=== PATIENT | female | born 1930 | race Caucasian/White ===

== ENCOUNTER 2018-07-19 14:40 | Emergency (ER) | payer MEDICARE ==
[2018-07-19 14:56] VITALS: RESP 18; TEMP 98.1
[2018-07-19] MEDS ORDERED: hydrALAZINE HCL 25 MG TAB PO STA (15:15)
[2018-07-19] MEDS ORDERED: hydrALAZINE HCL 20 MG/ML 1 ML VIAL IVP STA (15:17)
--- NOTE | 2018-07-19 15:21 | ED ---
General Adult HPI - General Chief complaint: Recheck/Abnormal Lab/Rx Stated complaint: hypertension Time Seen by Provider: 07/19/18 14:46 Source: patient, family, EMS, RN notes reviewed Mode of arrival: EMS Limitations: no limitations - History of Present Illness Initial comments: Patient is a pleasant 87-year-old female presenting to the emergency department with concerns for hypertension. Patient states blood pressure this morning was 200 systolic. Patient does not have further information. Patient states otherwise she feels fine. Patient does have some lightheadedness however this is chronic and unchanged. Family is present and does not have further information. Patient denies any chest pain or dyspnea. No weakness or confusion. - Related Data Home Medications Medication Instructions Recorded Confirmed Acetaminophen-Codeine 300-30mg 1 tab PO Q6H PRN 07/19/18 07/19/18 [Tylenol w/codeine #3] Albuterol Sulfate [Proair Hfa] 2 puff INHALATION RT-Q6H PRN 07/19/18 07/19/18 Cyanocobalamin (Vitamin B-12) 1,000 mcg PO DAILY 07/19/18 07/19/18 [Vitamin B-12] DULoxetine HCL [Cymbalta] 30 mg PO DAILY 07/19/18 07/19/18 Docusate [Colace] 100 mg PO HS 07/19/18 07/19/18 Dorzolamide HCl/Pf [Dorzolamide 2% 1 drop BOTH EYES BID 07/19/18 07/19/18 Eye Drop] Ergocalciferol [Vitamin D2] 50,000 unit PO TH 07/19/18 07/19/18 Folic Acid 0.4 mg PO DAILY 07/19/18 07/19/18 Gabapentin [Neurontin] 300 mg PO BID 07/19/18 07/19/18 Latanoprost/Pf [Latanoprost 0.005% 1 drop BOTH EYES HS 07/19/18 07/19/18 Eye Drop] Levothyroxine Sodium [Synthroid] 25 mcg PO DAILY 07/19/18 07/19/18 Neomycin/Bacitracin/Polymyxinb 1 applic TOPICAL TID PRN 07/19/18 07/19/18 [Neosporin Ointment] Sensi-Care 15%-49% Cream 1 applic TOPICAL DAILY PRN 07/19/18 07/19/18 Vit C/E/Zn/Coppr/Lutein/Zeaxan 1 cap PO BID 07/19/18 07/19/18 [Preservision Areds 2 Softgel] Zolpidem [Ambien] 5 mg PO HS 07/19/18 07/19/18 amLODIPine [Norvasc] 10 mg PO HS 07/19/18 07/19/18 hydrALAZINE HCL [Apresoline] 50 mg PO TID 07/19/18 07/19/18 Allergies Allergy/AdvReac Type Severity Reaction Status Date / Time morphine Allergy Unknown Verified 07/19/18 15:07 sertraline Allergy Unknown Verified 07/19/18 15:07 Review of Systems ROS Statement: Those systems with pertinent positive or pertinent negative responses have been documented in the HPI. ROS Other: All systems not noted in ROS Statement are negative. Constitutional: Denies: fever Eyes: Denies: eye pain ENT: Denies: ear pain Respiratory: Denies: cough, dyspnea Cardiovascular: Denies: chest pain Endocrine: Denies: fatigue Gastrointestinal: Denies: abdominal pain Genitourinary: Denies: dysuria Musculoskeletal: Denies: back pain Skin: Denies: rash Neurological: Denies: headache Past Medical History Past Medical History: No Reported History History of Any Multi-Drug Resistant Organisms: None Reported Past Surgical History: No Surgical Hx Reported Past Psychological History: Depression Smoking Status: Former smoker Past Alcohol Use History: None Reported Past Drug Use History: None Reported General Exam Limitations: no limitations General appearance: alert, in no apparent distress Head exam: Present: atraumatic Eye exam: Present: normal appearance, PERRL, EOMI. Absent: nystagmus ENT exam: Present: normal oropharynx Neck exam: Present: normal inspection Respiratory exam: Present: normal lung sounds bilaterally Cardiovascular Exam: Present: regular rate, normal rhythm GI/Abdominal exam: Present: soft. Absent: tenderness Extremities exam: Present: normal inspection Neurological exam: Present: alert, oriented X3, CN II-XII intact. Absent: motor sensory deficit Expanded Neurological exam: Present: protecting the airway Patient oriented to: Present: person, place, time Speech: Present: fluid speech Cranial nerves: EOM's Intact: Normal, Facial Sensation: Normal Motor strength exam: RUE: 5, LUE: 5, RLE: 5, LLE: 5 Eye Response: (4) open spontaneously Motor Response: (6) obeys commands Verbal Response: (5) oriented Psychiatric exam: Present: normal affect, normal mood Skin exam: Present: normal color Course Vital Signs 07/19/18 07/19/18 14:53 15:30 Temperature 98.1 F Pulse Rate 60 58 L Respiratory 18 18 Rate Blood Pressure 182/65 175/63 O2 Sat by Pulse 92 L 94 L Oximetry EKG Findings - EKG Comments: EKG Findings:: Normal sinus rhythm 60. IA 174. QRS 82. QT 440. QTc 440. Left axis. Inferior Q waves. Nonspecific T waves. Medical Decision Making - Medical Decision Making Patient reevaluated and resting comfortably in bed. Patient symptom-free at this time. Patient and family updated on results. Case was discussed in detail with Dr. Nation who does agree with plan and states patient can follow-up with Dr. Vargas. - Lab Data Result diagrams: 07/19/18 14:46 07/19/18 14:46 Lab Results 07/19/18 07/19/18 Range/Units 14:46 14:46 WBC 6.2 (3.8-10.6) k/uL RBC 5.04 (3.80-5.40) m/uL Hgb 14.6 (11.4-16.0) gm/dL Hct 45.8 (34.0-46.0) % MCV 90.8 (80.0-100.0) fL MCH 29.0 (25.0-35.0) pg MCHC 31.9 (31.0-37.0) g/dL RDW 13.8 (11.5-15.5) % Plt Count 236 (150-450) k/uL Neutrophils % 57 % Lymphocytes % 31 % Monocytes % 7 % Eosinophils % 3 % Basophils % 1 % Neutrophils # 3.5 (1.3-7.7) k/uL Lymphocytes # 1.9 (1.0-4.8) k/uL Monocytes # 0.4 (0-1.0) k/uL Eosinophils # 0.2 (0-0.7) k/uL Basophils # 0.1 (0-0.2) k/uL Sodium 140 (137-145) mmol/L Potassium 4.4 (3.5-5.1) mmol/L Chloride 104 (98-107) mmol/L Carbon Dioxide 28 (22-30) mmol/L Anion Gap 8 mmol/L BUN 21 H (7-17) mg/dL Creatinine 0.80 (0.52-1.04) mg/dL Est GFR (CKD-EPI)AfAm 76 (>60 ml/min/1.73 sqM) Est GFR (CKD-EPI)NonAf 66 (>60 ml/min/1.73 sqM) Glucose 85 (74-99) mg/dL Calcium 9.0 (8.4-10.2) mg/dL Total Bilirubin 0.4 (0.2-1.3) mg/dL AST 32 (14-36) U/L ALT 29 (9-52) U/L Alkaline Phosphatase 131 H (38-126) U/L Total Protein 7.1 (6.3-8.2) g/dL Albumin 3.8 (3.5-5.0) g/dL Disposition Clinical Impression: Hypertension Disposition: HOME SELF-CARE Condition: Stable Instructions: Chronic Hypertension (ED) Additional Instructions: Please follow-up with Dr. Vargas this week. Return for uncontrolled blood pressure, weakness, pain, worsening or changing symptoms or other concerns. May take 1 additional dose of hydralazine daily if systolic blood pressure greater than 185 or diastolic blood pressure greater than 90 despite regular blood pressure medication. Is patient prescribed a controlled substance at d/c from ED?: No Referrals: Teto Vargas MD [Primary Care Provider] - 1-2 days Time of Disposition: 16:36
[2018-07-19 15:40] LABS: Basophils # (A) 0.1 k/uL (0-0.2); Basophils % (A) 1 %; Eosinophils # (A) 0.2 k/uL (0-0.7); Eosinophils % (A) 3 %; HCT 45.8 % (34.0-46.0); HGB 14.6 gm/dL (11.4-16.0); Lymphocytes # (A) 1.9 k/uL (1.0-4.8); Lymphocytes % (A) 31 %; MCHC 31.9 g/dL (31.0-37.0); MCV 90.8 fL (80.0-100.0); Mean Platelet Volume 7.9; Monocytes # (A) 0.4 k/uL (0-1.0); Monocytes % (A) 7 %; Neutrophils # (A) 3.5 k/uL (1.3-7.7); Neutrophils % (A) 57 %; Platelet Count 236 k/uL (150-450); RBC 5.04 m/uL (3.80-5.40); RDW 13.8 % (11.5-15.5); WBC 6.2 k/uL (3.8-10.6)
[2018-07-19 15:52] LABS: Albumin 3.8 g/dL (3.5-5.0); Potassium 4.4 mmol/L (3.5-5.1); Total Bilirubin 0.4 mg/dL (0.2-1.3); Total Protein 7.1 g/dL (6.3-8.2)
[2018-07-19 16:38] VITALS: BP 169/61; PULSE 60
== END 2018-07-19 16:56 | disposition home or self-care (01) ==
LOC: EC 14:40
DX: I10 Essential (primary) hypertension (principal); R42 Dizziness and giddiness; F32.9 Major depressive disorder, single episode, unspecified; Z87.891 Personal history of nicotine dependence; Z88.5 Allergy status to narcotic agent; Z88.8 Allergy status to other drugs, medicaments and biological substances; Z79.899 Other long term (current) drug therapy
CPT/HCPCS: 36415; 93005; 80053; 85025; 99284; 96374; J0360

== ENCOUNTER 2018-12-15 13:43 | Emergency (ER) | payer MEDICARE ==
[2018-12-15] MEDS ORDERED: SODIUM CHLORIDE 0.9% 1,000 ML IV STA (14:03)
--- NOTE | 2018-12-15 14:12 | ED ---
Weakness HPI - General Chief complaint: Syncope Stated complaint: FALL, HEAD/NECK INJURY Time Seen by Provider: 12/15/18 14:02 Source: patient, RN notes reviewed, old records reviewed Mode of arrival: EMS Limitations: no limitations - History of Present Illness Initial comments: This is an 88-year-old female the ER for evaluation of fall. Patient's a poor strain history obtained from EMS. Patient comes from home where she had The fall. No blood thinners.. Patient has no complaints. MD Complaint: generalized weakness, lack of energy, difficulty walking -: unknown Location: generalized Severity: moderate Severity scale (1-10): 5 Improves with: none Worsens with: none Associated Symptoms: denies other symptoms - Related Data Home Medications Medication Instructions Recorded Confirmed Acetaminophen-Codeine 300-30mg 1 tab PO Q6H PRN 07/19/18 12/15/18 [Tylenol w/codeine #3] Albuterol Sulfate [Proair Hfa] 2 puff INHALATION RT-Q6H PRN 07/19/18 12/15/18 Cyanocobalamin (Vitamin B-12) 1,000 mcg PO DAILY 07/19/18 12/15/18 [Vitamin B-12] DULoxetine HCL [Cymbalta] 30 mg PO DAILY 07/19/18 12/15/18 Docusate [Colace] 100 mg PO HS 07/19/18 12/15/18 Dorzolamide HCl/Pf [Dorzolamide 2% 1 drop BOTH EYES BID 07/19/18 12/15/18 Eye Drop] Ergocalciferol [Vitamin D2] 50,000 unit PO TH 07/19/18 12/15/18 Folic Acid 0.4 mg PO DAILY 07/19/18 12/15/18 Latanoprost/Pf [Latanoprost 0.005% 1 drop BOTH EYES HS 07/19/18 12/15/18 Eye Drop] Levothyroxine Sodium [Synthroid] 25 mcg PO DAILY 07/19/18 12/15/18 Vit C/E/Zn/Coppr/Lutein/Zeaxan 1 cap PO BID 07/19/18 12/15/18 [Preservision Areds 2 Softgel] Zolpidem [Ambien] 5 mg PO HS 07/19/18 12/15/18 amLODIPine [Norvasc] 10 mg PO HS 07/19/18 12/15/18 hydrALAZINE HCL [Apresoline] 50 mg PO BID 07/19/18 12/15/18 Acetaminophen Tab [Tylenol Tab] 325 mg PO Q4H PRN 12/15/18 12/15/18 Gabapentin [Neurontin] 100 mg PO BID@0800,1200 12/15/18 12/15/18 Gabapentin [Neurontin] 300 mg PO HS 12/15/18 12/15/18 Lisinopril [Zestril] 10 mg PO DAILY@1200 12/15/18 12/15/18 Magnesium Hydroxide [Milk of 22,400 mg PO DAILY PRN 12/15/18 12/15/18 Magnesia] Meclizine [Antivert] 12.5 mg PO BID PRN 12/15/18 12/15/18 hydrALAZINE HCL [Apresoline] 100 mg PO BID PRN 12/15/18 12/15/18 Allergies Allergy/AdvReac Type Severity Reaction Status Date / Time morphine Allergy Unknown Verified 12/15/18 14:16 sertraline Allergy Unknown Verified 12/15/18 14:16 Review of Systems ROS Statement: Those systems with pertinent positive or pertinent negative responses have been documented in the HPI. ROS Other: All systems not noted in ROS Statement are negative. Past Medical History Past Medical History: No Reported History Additional Past Medical History / Comment(s): neuropathy History of Any Multi-Drug Resistant Organisms: None Reported Past Surgical History: Orthopedic Surgery, Tonsillectomy Additional Past Surgical History / Comment(s): right hip Past Psychological History: Depression Smoking Status: Former smoker Past Alcohol Use History: None Reported Past Drug Use History: None Reported General Exam Limitations: no limitations General appearance: alert, in no apparent distress Head exam: Present: atraumatic, normocephalic, normal inspection Eye exam: Present: normal appearance, PERRL, EOMI. Absent: scleral icterus, conjunctival injection, periorbital swelling ENT exam: Present: normal exam, mucous membranes moist Neck exam: Present: normal inspection. Absent: tenderness, meningismus, lymphadenopathy Respiratory exam: Present: normal lung sounds bilaterally. Absent: respiratory distress, wheezes, rales, rhonchi, stridor Cardiovascular Exam: Present: regular rate, normal rhythm, normal heart sounds. Absent: systolic murmur, diastolic murmur, rubs, gallop, clicks GI/Abdominal exam: Present: soft, normal bowel sounds. Absent: distended, tenderness, guarding, rebound, rigid Extremities exam: Present: normal inspection, full ROM, normal capillary refill. Absent: tenderness, pedal edema, joint swelling, calf tenderness Back exam: Present: normal inspection Neurological exam: Present: alert, oriented X3, CN II-XII intact Psychiatric exam: Present: normal affect, normal mood Skin exam: Present: warm, dry, intact, normal color. Absent: rash Course Vital Signs 12/15/18 12/15/18 12/15/18 13:52 14:00 14:30 Temperature 97.9 F Pulse Rate 60 56 L 54 L Respiratory 17 16 15 Rate Blood Pressure 161/52 161/52 176/60 O2 Sat by Pulse 97 97 95 Oximetry 12/15/18 12/15/18 12/15/18 14:40 14:50 15:00 Temperature Pulse Rate 58 L 53 L Respiratory 13 18 Rate Blood Pressure 173/70 173/70 181/77 O2 Sat by Pulse 93 L 96 95 Oximetry 12/15/18 12/15/18 12/15/18 15:20 15:30 15:40 Temperature Pulse Rate 52 L 53 L 56 L Respiratory 19 19 16 Rate Blood Pressure 183/61 O2 Sat by Pulse 97 98 95 Oximetry 12/15/18 12/15/18 12/15/18 15:50 16:00 16:10 Temperature Pulse Rate 56 L 59 L Respiratory 7 L 11 L Rate Blood Pressure 183/61 183/61 183/61 O2 Sat by Pulse 94 L 91 L Oximetry 12/15/18 12/15/18 12/15/18 16:20 16:30 16:40 Temperature Pulse Rate 56 L 56 L 56 L Respiratory 15 19 11 L Rate Blood Pressure 183/61 183/61 188/67 O2 Sat by Pulse 96 97 96 Oximetry 12/15/18 12/15/18 12/15/18 16:50 17:00 17:10 Temperature Pulse Rate 58 L Respiratory 19 Rate Blood Pressure 188/67 188/67 159/72 O2 Sat by Pulse 90 L Oximetry 12/15/18 12/15/18 12/15/18 17:20 17:30 17:40 Temperature Pulse Rate 60 61 62 Respiratory 10 L 13 11 L Rate Blood Pressure 159/72 159/72 145/116 O2 Sat by Pulse 94 L 88 L 89 L Oximetry 12/15/18 12/15/18 17:50 18:00 Temperature Pulse Rate 64 62 Respiratory 14 15 Rate Blood Pressure 145/116 116/61 O2 Sat by Pulse 92 L Oximetry - Reevaluation(s) Reevaluation #1: 12/15/18 17:40 Medical record reviewed Reevaluation #2: 12/15/18 17:40 A she remains in no acute distress Reevaluation #3: 12/15/18 18:25 patient without complaint EKG Findings - EKG Comments: EKG Findings:: EKG shows bradycardia rate of 57, TN 166, QRS 70, QTc 420 Medical Decision Making - Medical Decision Making 88 female to the ER for evaluation. Patient presents today for evaluation in regards to fall. No injury from fall. Patient is multiple testing done today which is negative. Patient can be discharged home feeling and remaining without complaint - Lab Data Result diagrams: 12/15/18 14:00 12/15/18 14:00 Lab Results 12/15/18 12/15/18 12/15/18 Range/Units 14:00 14:00 14:00 WBC 4.9 (3.8-10.6) k/uL RBC 4.53 (3.80-5.40) m/uL Hgb 13.7 (11.4-16.0) gm/dL Hct 42.1 (34.0-46.0) % MCV 93.0 (80.0-100.0) fL MCH 30.3 (25.0-35.0) pg MCHC 32.6 (31.0-37.0) g/dL RDW 13.6 (11.5-15.5) % Plt Count 210 (150-450) k/uL Neutrophils % 59 % Lymphocytes % 27 % Monocytes % 8 % Eosinophils % 3 % Basophils % 1 % Neutrophils # 2.9 (1.3-7.7) k/uL Lymphocytes # 1.3 (1.0-4.8) k/uL Monocytes # 0.4 (0-1.0) k/uL Eosinophils # 0.2 (0-0.7) k/uL Basophils # 0.0 (0-0.2) k/uL PT 10.0 (9.0-12.0) sec INR 0.9 (<1.2) APTT 24.1 (22.0-30.0) sec D-Dimer 2.55 H (<0.60) mg/L FEU Sodium 140 (137-145) mmol/L Potassium 4.7 (3.5-5.1) mmol/L Chloride 106 (98-107) mmol/L Carbon Dioxide 27 (22-30) mmol/L Anion Gap 7 mmol/L BUN 24 H (7-17) mg/dL Creatinine 0.71 (0.52-1.04) mg/dL Est GFR (CKD-EPI)AfAm 88 (>60 ml/min/1.73 sqM) Est GFR (CKD-EPI)NonAf 76 (>60 ml/min/1.73 sqM) Glucose 125 H (74-99) mg/dL Calcium 9.1 (8.4-10.2) mg/dL Phosphorus 3.9 (2.5-4.5) mg/dL Magnesium 2.1 (1.6-2.3) mg/dL Total Bilirubin 0.4 (0.2-1.3) mg/dL AST 20 (14-36) U/L ALT 20 (9-52) U/L Alkaline Phosphatase 116 (38-126) U/L Total Creatine Kinase (30-135) U/L CK-MB (CK-2) (0.0-2.4) ng/mL CK-MB (CK-2) Rel Index Troponin I (0.000-0.034) ng/mL NT-Pro-B Natriuret Pep pg/mL Total Protein 6.6 (6.3-8.2) g/dL Albumin 3.8 (3.5-5.0) g/dL Urine Color Urine Appearance (Clear) Urine pH (5.0-8.0) Ur Specific [place] (1.001-1.035) Urine Protein (Negative) Urine Glucose (UA) (Negative) Urine Ketones (Negative) Urine Blood (Negative) Urine Nitrite (Negative) Urine Bilirubin (Negative) Urine Urobilinogen (<2.0) mg/dL Ur Leukocyte Esterase (Negative) Urine RBC (0-5) /hpf Urine WBC (0-5) /hpf Ur Squamous Epith Cells (0-4) /hpf Amorphous Sediment (None) /hpf Urine Mucus (None) /hpf 12/15/18 12/15/18 12/15/18 Range/Units 14:00 14:00 17:50 WBC (3.8-10.6) k/uL RBC (3.80-5.40) m/uL Hgb (11.4-16.0) gm/dL Hct (34.0-46.0) % MCV (80.0-100.0) fL MCH (25.0-35.0) pg MCHC (31.0-37.0) g/dL RDW (11.5-15.5) % Plt Count (150-450) k/uL Neutrophils % % Lymphocytes % % Monocytes % % Eosinophils % % Basophils % % Neutrophils # (1.3-7.7) k/uL Lymphocytes # (1.0-4.8) k/uL Monocytes # (0-1.0) k/uL Eosinophils # (0-0.7) k/uL Basophils # (0-0.2) k/uL PT (9.0-12.0) sec INR (<1.2) APTT (22.0-30.0) sec D-Dimer (<0.60) mg/L FEU Sodium (137-145) mmol/L Potassium (3.5-5.1) mmol/L Chloride (98-107) mmol/L Carbon Dioxide (22-30) mmol/L Anion Gap mmol/L BUN (7-17) mg/dL Creatinine (0.52-1.04) mg/dL Est GFR (CKD-EPI)AfAm (>60 ml/min/1.73 sqM) Est GFR (CKD-EPI)NonAf (>60 ml/min/1.73 sqM) Glucose (74-99) mg/dL Calcium (8.4-10.2) mg/dL Phosphorus (2.5-4.5) mg/dL Magnesium (1.6-2.3) mg/dL Total Bilirubin (0.2-1.3) mg/dL AST (14-36) U/L ALT (9-52) U/L Alkaline Phosphatase (38-126) U/L Total Creatine Kinase 43 (30-135) U/L CK-MB (CK-2) 1.4 (0.0-2.4) ng/mL CK-MB (CK-2) Rel Index 3.3 Troponin I <0.012 (0.000-0.034) ng/mL NT-Pro-B Natriuret Pep 415 pg/mL Total Protein (6.3-8.2) g/dL Albumin (3.5-5.0) g/dL Urine Color Light Yellow Urine Appearance Clear (Clear) Urine pH 7.0 (5.0-8.0) Ur Specific [place] 1.030 (1.001-1.035) Urine Protein Negative (Negative) Urine Glucose (UA) Negative (Negative) Urine Ketones Negative (Negative) Urine Blood Negative (Negative) Urine Nitrite Negative (Negative) Urine Bilirubin Negative (Negative) Urine Urobilinogen <2.0 (<2.0) mg/dL Ur Leukocyte Esterase Small H (Negative) Urine RBC 1 (0-5) /hpf Urine WBC 5 (0-5) /hpf Ur Squamous Epith Cells 2 (0-4) /hpf Amorphous Sediment Rare H (None) /hpf Urine Mucus Rare H (None) /hpf - Radiology Data Radiology results: report reviewed (CT brain C-spine negative for acute disease CTA chest negative for acute disease chest x-ray and pelvis x-rays negative for acute disease), image reviewed Disposition Clinical Impression: Fall Disposition: HOME SELF-CARE Instructions (If sedation given, give patient instructions): Fall Prevention for Older Adults (ED) Is patient prescribed a controlled substance at d/c from ED?: No Referrals: Teto Vargas MD [Primary Care Provider] - 1-2 days
[2018-12-15 15:00] LABS: Basophils % (A) 1 %; Eosinophils # (A) 0.2 k/uL (0-0.7); Eosinophils % (A) 3 %; HCT 42.1 % (34.0-46.0); HGB 13.7 gm/dL (11.4-16.0); Lymphocytes # (A) 1.3 k/uL (1.0-4.8); Lymphocytes % (A) 27 %; MCH 30.3 pg (25.0-35.0); MCHC 32.6 g/dL (31.0-37.0); Mean Platelet Volume 8.4; Monocytes # (A) 0.4 k/uL (0-1.0); Monocytes % (A) 8 %; Neutrophils # (A) 2.9 k/uL (1.3-7.7); Neutrophils % (A) 59 %; Platelet Count 210 k/uL (150-450); RBC 4.53 m/uL (3.80-5.40); RDW 13.6 % (11.5-15.5); WBC 4.9 k/uL (3.8-10.6)
[2018-12-15 15:09] LABS: Albumin 3.8 g/dL (3.5-5.0); Calcium 9.1 mg/dL (8.4-10.2); Magnesium 2.1 mg/dL (1.6-2.3); Phosphorus 3.9 mg/dL (2.5-4.5); Potassium 4.7 mmol/L (3.5-5.1); Total Bilirubin 0.4 mg/dL (0.2-1.3); Total Protein 6.6 g/dL (6.3-8.2)
[2018-12-15 15:15] LABS: INR 0.9 (<1.2); Partial Thromboplastin Time 24.1 sec (22.0-30.0)
[2018-12-15 15:17] LABS: D-Dimer 2.55 mg/L FEU (<0.60)
[2018-12-15 15:25] LABS: Troponin I <0.012 ng/mL (0.000-0.034)
--- NOTE | 2018-12-15 15:41 | CT ---
EXAMINATION TYPE: CT brain jet mohr con DATE OF EXAM: 12/15/2018 COMPARISON: None HISTORY: 88-year-old female with pain after Fall today CT DLP: 1352.7 mGycm Automated exposure control for dose reduction was used. Technique: Examination of the head was done in axial plane without intravenous contrast. Coronal and sagittal reconstructions performed. CT of the cervical spine was obtained in axial plane without intravenous injection of contrast mater ial. Coronal and sagittal reformatted images were obtained from the axial views for evaluation of f ractures, spinal alignment and canal. FINDINGS: Head: There is no evidence of acute intracranial hemorrhage, acute ischemic changes, mass, mass-effect, or extra-axial fluid collection. There is no effacement of cerebral sulci or basal subarachnoid cister ns. There is no hydrocephalus. There is no midline shift. Samson-white matter distinction is preserv ed. There is moderate cerebral atrophy. Empty sella noted. Prominent calcified choroid plexus cysts are d emonstrated. Scleral banding on the left. Paranasal sinuses and mastoid air cells appear well-pneumatized. Cervical spine: No craniocervical junction abnormality, predental space widening, or prevertebral soft tissue swellin g. Degenerative changes of the C1 dens articulation. Trace grade 1 retrolisthesis at C4-C5 and trace grade 1 anterolisthesis at C7-T1 and T2-T3. Hypertrophic facet and uncovertebral joint degenerative change throughout. No acute fracture of the cervical spine. Variable mild to moderate neural foraminal stenoses througho ut Densities at this chronic calcifications abdominal aorta and great vessels bronchial wall thickening in the visualized upper lungs and some additional patchy densities superimposed on COPD. Chest will b e reported separately. Sagittal and coronal reformatted images confirm above findings. COMBINED IMPRESSION: 1. Moderate cerebral atrophy. No acute intracranial abnormality seen. 2. No acute fracture of the cervical spine. Moderate multilevel spondylotic change. Degenerative grad e 1 spondylolistheses at C4-C5, C7-T1, and T2-T3.
--- NOTE | 2018-12-15 16:21 | XR ---
EXAMINATION TYPE: XR chest 1V DATE OF EXAM: 12/15/2018 COMPARISON: 11/11/2012 HISTORY: 88-year-old female fall and pain TECHNIQUE: Single frontal view of the chest is obtained. FINDINGS: Densely calcified thoracic aorta redemonstrated. Heart borderline enlarged. Mild diffuse interstitial prominence of the chronic appearance. No ciro consolidation or pleural effusion seen. IMPRESSION: Borderline heart size. Densely calcified thoracic aorta. There could be underlying aortic ectasia. Ot herwise, chronic appearing changes without definite acute process.
--- NOTE | 2018-12-15 16:23 | XR ---
EXAMINATION TYPE: AP view pelvis and 2 views right hip. DATE OF EXAM: 12/15/2018 COMPARISON: NONE HISTORY: 88-year-old female fall and pain FINDINGS: Heterotopic ossification and/or chronically displaced fragments from the bilateral greater trochanter s are redemonstrated. Right-sided total hip arthroplasty and left hip hemiarthroplasty are demonstrat ed. Pubic symphysis appears intact. Femoral stem component of the right hip total arthroplasty appears well seated. No evidence of loosen ing. No periprosthetic fracture seen. IMPRESSION: 1. Right hip total arthroplasty. Chronically displaced, corticated greater trochanter fragments are d emonstrated. No periprosthetic fracture or loosening. 2. 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
[2018-12-15 16:43] LABS: Creatine Kinase 43 U/L (30-135)
[2018-12-15 16:53] LABS: Creatine Kinase MB 1.4 ng/mL (0.0-2.4)
--- NOTE | 2018-12-15 17:43 | CT ---
EXAMINATION TYPE: CT angio chest w con abdomen 3-D reconstruction renderings DATE OF EXAM: 12/15/2018 5:03 PM COMPARISON: None HISTORY: PEG, pt recently had a fall CT DLP: 218.8 mGycm Automated exposure control for dose reduction was used. CONTRAST: CTA scan of the thorax is performed with IV Contrast, patient injected with 100 mL of Isovu e 370, pulmonary embolism protocol. 3-D reconstructions . FINDINGS: AIRWAYS: Unremarkable. LUNGS: Negative for pulmonary edema or evidence of pneumonia. There is hyperinflation in evident emph ysematous changes. PLEURAL SPACES: Negative. MEDIASTINUM/TERRANCE: The pulmonary arterial tree is well-opacified and is negative for filling defects t o suggest pulmonary emboli. The pulmonary arterial tree is dilated in caliber centrally to a mild/mod erate degree, which can correlate with a clinical diagnosis of pulmonary hypertension. There are no acute aortic findings, but advanced atherosclerotic changes are noted throughout the vis ualized arterial anatomy, including prominent left and right coronary calcifications. There is moderate plus cardiomegaly, but no pericardial effusion. OTHER: Pectus excavatum is incidentally noted. No acute skeletal process. No acute abdominal findings. IMPRESSION: Negative for pulmonary embolism.
[2018-12-15 18:06] VITALS: BP 116/61
[2018-12-15 18:08] LABS: Amorphous Sediment,Urine Rare /hpf; Appearance,Urine Clear (Clear); Bilirubin,Urine Negative (Negative); Blood,Urine Negative (Negative); Color,Urine Light Yellow; Glucose,Urine (UA) Negative (Negative); Ketones,Urine Negative (Negative); Leukocyte Esterase,Urine Small (Negative); Mucus,Urine Rare /hpf; Nitrite,Urine Negative (Negative); Protein,Urine Negative (Negative); RBC,Urine 1 /hpf (0-5); Squamous Epithelial Cell,Urine 2 /hpf (0-4); Urobilinogen,Urine <2.0 mg/dL (<2.0); WBC,Urine 5 /hpf (0-5)
[2018-12-15 18:57] VITALS: PULSE 61; RESP 18; TEMP 98.7
== END 2018-12-15 18:35 | disposition home or self-care (01) ==
LOC: EC 13:43
DX: Z04.3 Encounter for examination and observation following other accident (principal); R53.1 Weakness; R26.2 Difficulty in walking, not elsewhere classified; G62.9 Polyneuropathy, unspecified; F32.9 Major depressive disorder, single episode, unspecified; Z87.891 Personal history of nicotine dependence; Z79.890 Hormone replacement therapy; Z79.899 Other long term (current) drug therapy; Z88.5 Allergy status to narcotic agent; Z88.8 Allergy status to other drugs, medicaments and biological substances; W19.XXXA Unspecified fall, initial encounter; W22.8XXA Striking against or struck by other objects, initial encounter; Y92.009 Unspecified place in unspecified non-institutional (private) residence as the place of occurrence of the external cause; Z96.641 Presence of right artificial hip joint
CPT/HCPCS: 36415; 93005; 85379; 83880; 80053; 82550; 82553; 83735; 84100; 84484; 85025; 85610; 85730; 81001; 87086; 73502; 71045; 72125; 70450; 71275; 99285; 96360; Q9967